=== PATIENT | male | born 1995 | race Hispanic/Latino ===

== ENCOUNTER 2023-11-25 18:22 | Emergency (ER) | payer SELFPAY ==
[~2023-11-25] VITALS: Ht 188 cm; Wt 131.5 kg
[2023-11-25 20:47] VITALS: BP 122/88; PULSE 100; RESP 20; TEMP 98.6; O2SAT 100
[2023-11-25] MEDS: ketOROlac 15MG/ML VIAL (15MG/ML) IM ONE (20:51)
== END 2023-11-25 20:58 | disposition home or self-care (01) ==
LOC: EDH 18:22
DX: S83.8X2A Sprain of other specified parts of left knee, initial encounter (principal); Z98.890 Other specified postprocedural states; X58.XXXA Exposure to other specified factors, initial encounter; Y93.39 Activity, other involving climbing, rappelling and jumping off; Y92.89 Other specified places as the place of occurrence of the external cause; Y99.8 Other external cause status
CPT/HCPCS: 99284; 73552; 73562; 96372; J1885

== ENCOUNTER 2023-12-20 18:31 | Emergency (ER) | payer SELFPAY ==
[~2023-12-20] VITALS: Ht 188 cm; Wt 127.0 kg
[2023-12-20] MEDS ORDERED: CEPH500B PO (21:53)
[2023-12-20] MEDS: DIPH,PERTUSS(ACELL),TET VAC/PF 0.5 ML VIAL IM ONE (22:32)
[2023-12-20] MEDS: LIDOCAINE HCL 1% 20 ML VIAL INJ SCH (22:36)
[2023-12-20] MEDS: cePHALexin 500 MG CAPSULE PO ONE (22:36)
[2023-12-20 22:47] VITALS: BP 139/87; PULSE 78; RESP 18; TEMP 98.1; O2SAT 99
[2023-12-20] MEDS: NEOMY SULF/BACITRA/POLYMYXIN B 1 EACH PACKET TP ONE (22:50)
== END 2023-12-20 22:51 | disposition home or self-care (01) ==
LOC: EDH 18:31
DX: S60.450A Superficial foreign body of right index finger, initial encounter (principal); X58.XXXA Exposure to other specified factors, initial encounter; Y93.89 Activity, other specified; Y92.89 Other specified places as the place of occurrence of the external cause; Y99.8 Other external cause status
CPT/HCPCS: 73140; 90471; 90715